=== PATIENT | female | born 1965 | race Caucasian/White ===

== ENCOUNTER → 2018-11-11 | Outpatient (CLI) | payer MEDICAID ==
[~2018-11-11] MED LIST: ACYCLOVIR 400400 MG PO; ADULT LOW DOSE81 MG PO; AMITIZA8 MCG PO; AUGMENTIN 500-1 EACH PO; B-100 COMPLEX1 EAC1 PO; IMIPRAMINE HCL25 MG PO; MULTI-VITAMIN1 EAC5 PO; SYNTHROID175 MCG PO; ZEGERID OTC 201 EACH PO
== END ==
LOC: M.RAD 14:58
DX: Z12.31 Encounter for screening mammogram for malignant neoplasm of breast (principal)